=== PATIENT | male | born 1990 | race African-American/Black ===

== ENCOUNTER 2017-06-02 06:29 | Emergency (ER) | payer MEDICAID ==
[~2017-06-02] VITALS: Ht 170.2 cm; Wt 54.5 kg
[~2017-06-02 06:29] MED LIST: ALBU6.7H *
[2017-06-02] MEDS ORDERED: MAGNESIUM/ALUMINUM HYDROXIDE/SIMETHICONE 30ML UDC PO STA (07:43)
[2017-06-02] MEDS ORDERED: VISCOUS LIDOCAINE 2% 15 ML UDC MM ONE (07:45)
[2017-06-02 08:51] LABS: HEMATOCRIT. 38.3 % (42.0-52.0); MEAN CORPUSCULAR HEMOGLOBIN 27.6 pg (28.0-32.0); MEAN CORPUSCULAR VOLUME 81.2 fL (80.0-94.0); MEAN PLATELET VOLUME 9.4 fl (7.4-10.4); PLATELET 283 x1000/uL (130-400); RED BLOOD CELL COUNT 4.71 mill/uL (4.7-6.1)
[2017-06-02 08:54] LABS: CHLORIDE 102 mEq/L (98-107)
[2017-06-02 08:58] LABS: CARBON DIOXIDE 23 mEq/L (21-32); D-DIMER 0.47 mg/L FEU (<0.50); INR 1.1; PARTIAL THROMBOPLASTIN TIME 30.1 sec (23.4-31.0); PROTHROMBIN TIME 11.6 sec (9.4-11.6)
[2017-06-02 09:40] LABS: PLATELET ESTIMATE NORMAL
[2017-06-02] MEDS ORDERED: ONDANSETRON HCL 4MG/2ML VIAL IV ONE (10:30)
[2017-06-02] MEDS ORDERED: MORPHINE SULFATE 4 MG/ML CPJ (NOT FOR IM USE) IV ONE (10:30)
[2017-06-02 12:59] VITALS: BP 101/67
== END 2017-06-02 13:10 | disposition home or self-care (01) ==
LOC: ER 06:29
DX: K21.9 Gastro-esophageal reflux disease without esophagitis (principal); J45.909 Unspecified asthma, uncomplicated; Z88.6 Allergy status to analgesic agent; Z88.3 Allergy status to other anti-infective agents
CPT/HCPCS: 36415; 71010; 80053; 83615; 83690; 84484; 85025; 85379; 85610; 85730; 93005; 96374; 96375; 99285; J2270; J2405; Z7610